=== PATIENT | female | born 1950 | race African-American/Black ===

== ENCOUNTER → 2016-11-25 | Outpatient (CLI) | payer MEDICARE ==
[2016-04-12 11:01] VITALS: BP 169/75
[~2016-11-25] MED LIST: ASPI81TA2 PO; BUPIVACAINE MPF 0.25% 10 ML VIAL. ONE; CARV12.5 PO; DOCU-27 PO; HYDR25SU18 RC; LEVO500T8 PO; LISI-334 PO; LORA1TAB PO; METR250T PO; OMEP40CA5 PO; PANT40TA5 PO; POLY17PO5 PO; PRAV20TA2 PO; SPIR50TA2 PO; SUCR1TAB PO; methylPREDNISolone ACETATE 40 MG/ML VIAL. ONE
--- NOTE | 2016-11-25 23:54 | PAIN ---
DATE OF SERVICE: 11/25/2016 INITIAL CONSULTATION FOR PAIN CLINIC CHIEF COMPLAINT: Mid upper back pain. HISTORY OF PRESENT ILLNESS: This is a 66-year-old female who presents with history of pain for about 1 year, not a result of any specific injury or action that she is aware of, but has pain in the mid and upper back since that time without any inciting injuries noted, but has had burning sensation more than painful sensation in the mid upper back. The patient reports it also causes some burning around into the abdomen bilaterally and mostly in the back; however, she reports she has to lean forward to some extent to try and stretch the muscles, which helps to feel little better. When she is sitting upright or standing upright the pain and burning is much more significant, the patient rates it anywhere from a 9 on a scale of 10 to a 3 on a scale of 10, 3 with leaning forward, 9 with standing upright, worse with standing, walking, changing positions. The patient reports it awakens her from sleep at night at least 2 or 3 times, affects her bowel and bladder control and states she has more urgency, but no loss of continence by her report. Also some abdominal burning similar to the intensity that is in the low back, but much less intense of a similar quality rather. The patient reports it is worse with changing positions, extension of her spine, but not as much with right and left lateral rotation which she can perform without significant difficulty. The patient reports she has had physical therapy without significant improvement in 12/2015. Also taken muscle relaxers in the past, which were not significantly helpful and tried gabapentin, but reports this did not help either and caused some peripheral swelling also. The patient had no radiation of pain to the upper extremities, lower extremities or elsewhere and again is bilateral and burning in sensation in the mid upper back. PAST MEDICAL HISTORY: Significant for hypertension, glaucoma, arthritis, gastroesophageal reflux, enlarged uterus. PREVIOUS SURGERY: Include colon resection, history of shingles many years ago, which was on the on the left side on the left breast and flank by her report. CURRENT MEDICATIONS: Include carvedilol, alprazolam, stool softeners, MiraLax, ____, sucralfate, pravastatin, omeprazole and lisinopril. ALLERGIES: THE PATIENT IS ALLERGIC TO SULFA, CODEINE, LEVAQUIN, MORPHINE, AND FENTANYL. FAMILY HISTORY: Significant for strokes in both her mother and her father. SOCIAL HISTORY: The patient does not smoke, does not drink alcohol. 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 The patient lives with her . REVIEW OF SYSTEMS: The patient's review of systems is positive for those items mentioned in history of present illness. All systems reviewed and otherwise negative. It is complete, full and well documented on the patient's chart. PHYSICAL EXAMINATION: VITAL SIGNS: The patient's blood pressure 164/93, pulse 63, respirations 18, temperature 97.7 degrees Fahrenheit, height is 5 feet 1 inch, weight is 158 pounds. GENERAL: The patient is awake, alert, oriented, appropriate, very pleasant demeanor. HEENT: Head shows normocephalic, atraumatic. Extraocular movements are intact and symmetrical. Oral cavity shows mucous membranes moist and pink. Dentition is intact. NECK: Shows anterior throat supple without palpable lymphadenopathy noted. Swallow reflex is symmetrical. CHEST: Shows normal on inspection. Breath sounds are clear to auscultation bilaterally. HEART: Shows S1 and S2 clear. No murmurs auscultated. ABDOMEN: Shows some mild tenderness with palpation in the middle and lower distribution bilaterally, mainly in the hypogastric region with palpation, but without specific masses palpated. No organomegaly. No rebound or guarding demonstrated. The patient shows positive bowel sounds in all 4 quadrants. BACK: The patient's back shows spine grossly in the midline. Normal appearing thoracic kyphosis and lumbar lordotic curvature is noted. No previous bruises, lesions, rashes or scars are noted throughout. The patient shows symmetrical paraspinous musculature throughout the thoracic as well as the lumbar distribution. With palpation of the thoracic paraspinous musculature shows very firm, very tender musculature, very rope-like tender areas of musculature bilaterally in the mid and upper thoracic distribution, the rhomboid distribution, and in the middle and lower thoracic distribution as well, somewhat worse on the right than the left in the middle and lower distribution, but tender bilaterally with multiple areas of trigger point rope-like musculature, very tender to palpation, but without specific radiation. No specific tenderness over the spinous processes in this region or in the lumbar distribution. Lumbar paraspinous musculature is nontender with palpation bilaterally. DIAGNOSTIC FINDINGS: The patient did have MRI scan of the thoracic spine showing no significant abnormalities and likely ____ masses. Ultrasound of the pelvis was performed and abdomen showing calcified heterogeneous structures identified, the uterus measuring 1.5 cm, likely calcified fibroids, and large appearing right ovary with calcifications. IMPRESSION: 1. This is a 66-year-old female with about one year history of increasing burning sensation, back pain, middle and upper back with some burning in the lower abdomen as well and pelvis. 2. Diagnostic studies as noted, MRI and ultrasound. 3. History of arthritis. 4. Hypertension. PLAN: Options were discussed with the patient including conservative medical management, continued physical therapy, water therapy, medication management and interventional techniques. She would like to pursue something other than physical therapy and medications as she reports she has had many of these without significant improvement. With the severity of her trigger point identified musculature we discussed trigger point injections of the bilateral rhomboid and thoracic paraspinous musculature. She would like to proceed with this. Risks were discussed including but not limited to bleeding, infection, possibility of intravascular injection sequelae, pneumothorax, side effects of steroid medication, spread of local anesthetic and numbness as well as poor results regarding pain control. The patient understands and wishes to proceed. The patient will return to the clinic in approximately 3 weeks for followup. She was counseled on return appointment, activity level and side effects to be aware of. DIAGNOSIS: Myofascial pain. PROCEDURE: Trigger point injections, bilateral rhomboid musculature and bilateral thoracic paraspinous musculature using sterile prep and drape, local anesthetic. MEDICATION INJECTED: A total of 40 mg Depo-Medrol plus total of 10 mL of 0.25% bupivacaine after negative aspiration at each level. CONDITION AT DISCHARGE: Stable. The patient tolerated procedure well, had no complications. DOV AUGUSTE MD DR: PALMIRA/gertrudis JOB#: [id number] / [id number]
== END | disposition home or self-care (01) ==
LOC: PNCL 13:03
PROVIDERS: ATTEND Anesthesiology
DX: M79.1 Myalgia (principal); I10 Essential (primary) hypertension; K21.9 Gastro-esophageal reflux disease without esophagitis; M19.90 Unspecified osteoarthritis, unspecified site; E78.00 Pure hypercholesterolemia, unspecified; F41.9 Anxiety disorder, unspecified; F32.9 Major depressive disorder, single episode, unspecified; D64.9 Anemia, unspecified
CPT/HCPCS: 20553; J1030; J3490

== ENCOUNTER → 2016-12-09 | Outpatient (CLI) | payer MEDICARE ==
[2016-04-12 11:01] VITALS: BP 169/75
[~2016-12-09] MED LIST changes: -BUPIVACAINE MPF 0.25% 10 ML VIAL. ONE; +POLY17PO29 PO; -POLY17PO5 PO; -methylPREDNISolone ACETATE 40 MG/ML VIAL. ONE
--- NOTE | 2016-12-09 13:34 | RAD ---
DATE: 12/09/2016 EXAM: DIGITAL DIAGNOSTIC RT HISTORY: Follow-up axillary lymph nodes COMPARISON: 06/18/2016, 05/31/2016 This study was interpreted with the benefit of Computerized Aided Detection (CAD). FINDINGS: There are scattered fibroglandular densities in the right breast. No new or enlarging breast densities are seen. There is an unchanged tiny cluster of microcalcifications in the anterolateral aspect of the right breast. No suspicious microcalcifications have developed. The anterior margins of 2 lymph nodes are partially visible on one of the oblique views. These nodes do not appear to be enlarged. Other nodes seen on the 05/31/2016 could not be visualized at this time despite several repeat oblique views. No new or enlarging lymph nodes are seen. IMPRESSION: Stable right mammograms as described above. Bilateral mammography in 6 months is suggested. BI-RADS CATEGORY: 3 PROBABLY BENIGN FINDING(S)-SHORT INTERVAL FOLLOW-UP SUGGESTED RECOMMENDED FOLLOW-UP: 6M 6 MONTH FOLLOW-UP PQRS compliance statement: Patient information was entered into a reminder system with a target due date for the next mammogram. Mammography is a sensitive method for finding small breast cancers, but it does not detect them all and is not a substitute for careful clinical examination. A negative mammogram does not negate a clinically suspicious finding and should not result in delay in biopsying a clinically suspicious abnormality. "Our facility is accredited by the [employer] Mammography Program."
== END | disposition home or self-care (01) ==
LOC: MAMMO 12:48
PROVIDERS: ATTEND Nurse Practitioner Family
DX: R92.8 Other abnormal and inconclusive findings on diagnostic imaging of breast (principal)
CPT/HCPCS: G0206; 77065

== ENCOUNTER → 2016-12-23 | Outpatient (CLI) | payer MEDICARE ==
[2016-04-12 11:01] VITALS: BP 169/75
[2016-12-23 14:19] LABS: BASO # 0.1 x10^3/uL (0.0-0.2); BASO % 1 % (0-3); EOS % 3 % (0-3); HEMOGLOBIN 13.2 g/dL (12.0-15.5); LYMPH % 27 % (24-48); MEAN CORPUSCULAR HEMOGLOBIN 30 pg (25-35); MEAN CORPUSCULAR HGB CONC 33 g/dL (31-37); MEAN CORPUSCULAR VOLUME 92 fL (79-100); MONO % 7 % (0-9); NEUT % 63 % (31-73); PLATELET COUNT 181 x10^3/uL (140-400); RED BLOOD COUNT 4.36 x10^6/uL (3.50-5.40); RED CELL DISTRIBUTION WIDTH 14.9 % (11.5-14.5); WHITE BLOOD COUNT 7.3 x10^3/uL (4.0-11.0)
[2016-12-23 14:23] LABS: BILIRUBIN,URINE NEGATIVE (NEG); GLUCOSE,URINE NEGATIVE (NEG); NITRITE,URINE NEGATIVE (NEG); PROTEIN,URINE NEGATIVE (NEG-TRACE); UROBILINOGEN,URINE 0.2 mg/dL (0.2 mg/dL)
--- NOTE | 2016-12-23 14:24 | EKG ---
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
[2016-12-23 14:37] LABS: ALBUMIN 3.7 g/dL (3.4-5.0); ALBUMIN/GLOBULIN RATIO 0.9 (1.0-1.7); CALCIUM 9.1 mg/dL (8.5-10.1); CREATININE 1.3 mg/dL (0.6-1.0); GFR 49.4; POTASSIUM 4.2 mmol/L (3.5-5.1); TOTAL BILIRUBIN 0.5 mg/dL (0.2-1.0); TOTAL PROTEIN 7.7 g/dL (6.4-8.2)
[2016-12-23 14:38] LABS: BACTERIA,URINE 0 /HPF (0-FEW); RBC,URINE 0 /HPF (0-2); SQUAMOUS EPITHELIAL CELL,UR FEW /LPF; WBC,URINE 0 /HPF (0-4)
--- NOTE | 2016-12-23 14:43 | RAD ---
Chest, 2 views, 12/23/2016: History: Preop evaluation for hysterectomy Comparison is made to a study from 08/26/2015. The heart is mildly enlarged. The pulmonary vascularity is normal. No pulmonary infiltrates are seen. There is no evidence of pleural fluid. IMPRESSION: 1. Mild cardiomegaly. 2. No acute abnormality is detected.
== END | disposition home or self-care (01) ==
LOC: SURGPAT 13:16
PROVIDERS: ATTEND Obstetrics & Gynecology
DX: Z01.818 Encounter for other preprocedural examination (principal); I51.7 Cardiomegaly
CPT/HCPCS: 36415; 71020; 80053; 81001; 85027; 87086; 93005

== ENCOUNTER → 2017-03-16 | Outpatient (CLI) | payer MEDICARE ==
[2016-04-12 11:01] VITALS: BP 169/75
[~2017-03-16] MED LIST changes: +ASPI-630 PO; -ASPI81TA2 PO; +DOCU-109 PO; -DOCU-27 PO
--- NOTE | 2017-03-16 13:24 | KCIC ---
EXAM: Right knee, 3 views. HISTORY: Pain. Inability to bear weight. COMPARISON: 05/02/2014 FINDINGS: Frontal, lateral and oblique views of the right knee are obtained. There is mild medial compartment joint space narrowing and moderate medial and patellofemoral compartment and mild to moderate lateral compartment spurring. There is degenerative subchondral sclerosis and subchondral cyst formation involving the patellofemoral compartment. There is a suspected small right knee effusion. IMPRESSION: 1. Moderate medial and patellofemoral compartment predominant tricompartmental osteoarthritis of the right knee. 2. Suspected small right knee effusion. Electronically signed by: Tanya Wilson MD (03/16/2017 1:21 PM) [id number]
== END | disposition home or self-care (01) ==
LOC: KCIC 12:34
PROVIDERS: ATTEND Nurse Practitioner Family
DX: M17.11 Unilateral primary osteoarthritis, right knee (principal)
CPT/HCPCS: 73562

== ENCOUNTER → 2017-06-12 | Day surgery (SDC) | payer MEDICARE ==
[~2017-06-12] MED LIST changes: +ERYT250T14 PO; +IV RINGERS,LACTATED 1000ML 1,000 ML IV SCH; +LOSA1TAB25 PO; +PROPOFOL 20 ML IV ONE
[2017-06-12 09:49] VITALS: BP 146/75
== END | disposition home or self-care (01) ==
LOC: ENDOS 08:23
PROVIDERS: ATTEND Internal Medicine Gastroenterology
DX: Z12.11 Encounter for screening for malignant neoplasm of colon (principal); D12.5 Benign neoplasm of sigmoid colon; K64.0 First degree hemorrhoids; E78.00 Pure hypercholesterolemia, unspecified; I10 Essential (primary) hypertension; K21.9 Gastro-esophageal reflux disease without esophagitis; F41.9 Anxiety disorder, unspecified; F32.9 Major depressive disorder, single episode, unspecified; D64.9 Anemia, unspecified; Z87.39 Personal history of other diseases of the musculoskeletal system and connective tissue; Z88.6 Allergy status to analgesic agent; Z88.2 Allergy status to sulfonamides; Z88.8 Allergy status to other drugs, medicaments and biological substances
CPT/HCPCS: 45385; J2704

== ENCOUNTER 2017-06-22 12:58 | Inpatient (IN) | payer MEDICARE ==
[~2017-06-22] VITALS: Ht 154.9 cm; Wt 70.8 kg
[~2017-06-22 12:58] MED LIST changes: -ERYT250T14 PO; -LOSA1TAB25 PO
[2017-06-22] MEDS ORDERED: IV NORMAL SALINE 1000ML BAG 1,000 ML IV ONE (13:15)
[2017-06-22] MEDS ORDERED: ONDANSETRON PF 4 MG/2 ML VIAL. IV ONE (13:15)
[2017-06-22] MEDS ORDERED: PANTOPRAZOLE IV PUSH 40 MG VIAL. IVP ONE ×2 (13:15→18:00)
--- NOTE | 2017-06-22 13:30 | EKG ---
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
[2017-06-22 13:34] LABS: BASO % 1 % (0-3); EOS % 1 % (0-3); HEMATOCRIT 40.4 % (36.0-47.0); HEMOGLOBIN 13.8 g/dL (12.0-15.5); LYMPH # 1.5 x10^3/uL (1.0-4.8); LYMPH % 17 % (24-48); MEAN CORPUSCULAR HEMOGLOBIN 31 pg (25-35); MEAN CORPUSCULAR HGB CONC 34 g/dL (31-37); MEAN CORPUSCULAR VOLUME 90 fL (79-100); MONO % 9 % (0-9); NEUT % 72 % (31-73); PLATELET COUNT 204 x10^3/uL (140-400); RED BLOOD COUNT 4.46 x10^6/uL (3.50-5.40); RED CELL DISTRIBUTION WIDTH 14.1 % (11.5-14.5); WHITE BLOOD COUNT 8.5 x10^3/uL (4.0-11.0)
[2017-06-22 13:42] LABS: CALCIUM 9.3 mg/dL (8.5-10.1); CREATININE 1.4 mg/dL (0.6-1.0); GFR 45.2; POTASSIUM 3.9 mmol/L (3.5-5.1)
[2017-06-22 13:48] LABS: ALBUMIN 3.8 g/dL (3.4-5.0); TOTAL BILIRUBIN 1.2 mg/dL (0.2-1.0); TOTAL PROTEIN 7.8 g/dL (6.4-8.2)
--- NOTE | 2017-06-22 13:55 | PHYS DOC ---
Past Medical History Past Medical History: Diverticulitis, GERD, GI Bleed, Hypertension, [place], Renal Disease Past Surgical History: Other Additional Past Surgical Histo: colectomy, cardiac stent Alcohol Use: None Drug Use: None Adult General Chief Complaint Chief Complaint: near syncope HPI HPI Patient is a 67 year old female who presents with here syncopal episode while getting a routine mammogram. Denies any chest pain or shortness of breath nausea vomiting or diarrhea. Does report fairly poor by mouth intake over the past week or so and recently had an EGD due to epigastric discomfort and apparently that did not demonstrate any significant pathology. Denies diabetes. Review of Systems Review of Systems Constitutional: Denies fever or chills [] Eyes: Denies change in visual acuity, redness, or eye pain [] HENT: Denies nasal congestion or sore throat [] Respiratory: Denies cough or shortness of breath [] Cardiovascular: No additional information not addressed in HPI [] GI: Denies abdominal pain, nausea, vomiting, bloody stools or diarrhea [] : Denies dysuria or hematuria [] Musculoskeletal: Denies back pain or joint pain [] Integument: Denies rash or skin lesions [] Neurologic: Denies headache, focal weakness or sensory changes [] Endocrine: Denies polyuria or polydipsia [] All other systems were reviewed and found to be within normal limits, except as documented in this note. Current Medications Current Medications Current Medications Medications (Trade) Dose Ordered Sig/Allan Start Time Stop Time Status Last Admin Dose Admin Ondansetron HCl (Zofran) 4 mg 1X ONCE 06/22/17 13:15 06/22/17 13:16 DC 06/22/17 13:51 4 MG Pantoprazole Sodium (Protonix Vial) 40 mg 1X ONCE 06/22/17 13:15 06/22/17 13:16 DC 06/22/17 13:51 40 MG Sodium Chloride 1,000 ml @ 1,000 mls/hr 1X ONCE 06/22/17 13:15 06/22/17 14:14 DC 06/22/17 13:51 1,000 MLS/HR Allergies Allergies Allergies Coded Allergies Type Severity Reaction Last Updated Verified fentanyl Allergy Intermediate PATIENT STATES THAT FENTANYL CAUSES HER TO BLEED 06/12/17 Yes levofloxacin Allergy Intermediate 06/12/17 Yes Sulfa (Sulfonamide Antibiotics) Adverse Reaction Intermediate SYNCOPE 06/12/17 Yes codeine Adverse Reaction Intermediate SYNCOPE 06/12/17 Yes metronidazole Adverse Reaction Intermediate Nausea 06/12/17 Yes morphine Adverse Reaction Intermediate nausea 06/12/17 Yes Physical Exam Physical Exam Constitutional: Well developed, well nourished, no acute distress, non-toxic appearance. [] HENT: Normocephalic, atraumatic, bilateral external ears normal, oropharynx moist, no oral exudates, nose normal. [] Eyes: PERRLA, EOMI, conjunctiva normal, no discharge. [] Neck: Normal range of motion, no tenderness, supple, no stridor. [] Cardiovascular:Heart rate regular rhythm, no murmur [] Lungs & Thorax: Bilateral breath sounds clear to auscultation [] Abdomen: Bowel sounds normal, soft, no tenderness, no masses, no pulsatile masses. [] Skin: Warm, dry, no erythema, no rash. [] Back: No tenderness, no CVA tenderness. [] Extremities: No tenderness, no cyanosis, no clubbing, ROM intact, no edema. [] Neurologic: Alert and oriented X 3, normal motor function, normal sensory function, no focal deficits noted. [] Psychologic: Affect normal, judgement normal, mood normal. [] Current Patient Data Vital Signs Vital Signs Date Time Temp Pulse Resp B/P (MAP) Pulse Ox O2 Delivery O2 Flow Rate FiO2 06/22/17 15:29 60 16 179/83 (115) 99 Room Air 06/22/17 13:03 98.7 98.7 Lab Values Laboratory Tests Test 06/22/17 13:01 06/22/17 13:25 06/22/17 14:50 Glucose (Fingerstick) 130 mg/dL (70-99) H White Blood Count 8.5 x10^3/uL (4.0-11.0) Red Blood Count 4.46 x10^6/uL (3.50-5.40) Hemoglobin 13.8 g/dL (12.0-15.5) Hematocrit 40.4 % (36.0-47.0) Mean Corpuscular Volume 90 fL (79-100) Mean Corpuscular Hemoglobin 31 pg (25-35) Mean Corpuscular Hemoglobin Concent 34 g/dL (31-37) Red Cell Distribution Width 14.1 % (11.5-14.5) Platelet Count 204 x10^3/uL (140-400) Neutrophils (%) (Auto) 72 % (31-73) Lymphocytes (%) (Auto) 17 % (24-48) L Monocytes (%) (Auto) 9 % (0-9) Eosinophils (%) (Auto) 1 % (0-3) Basophils (%) (Auto) 1 % (0-3) Neutrophils # (Auto) 6.1 x10^3uL (1.8-7.7) Lymphocytes # (Auto) 1.5 x10^3/uL (1.0-4.8) Monocytes # (Auto) 0.8 x10^3/uL (0.0-1.1) Eosinophils # (Auto) 0.1 x10^3/uL (0.0-0.7) Basophils # (Auto) 0.0 x10^3/uL (0.0-0.2) Sodium Level 125 mmol/L (136-145) L Potassium Level 3.9 mmol/L (3.5-5.1) Chloride Level 90 mmol/L (98-107) L Carbon Dioxide Level 26 mmol/L (21-32) Anion Gap 9 (6-14) Blood Urea Nitrogen 14 mg/dL (7-20) Creatinine 1.4 mg/dL (0.6-1.0) H Estimated GFR (Cockcroft-Gault) 45.2 BUN/Creatinine Ratio 10 (6-20) Glucose Level 124 mg/dL (70-99) H Calcium Level 9.3 mg/dL (8.5-10.1) Total Bilirubin 1.2 mg/dL (0.2-1.0) H Aspartate Amino Transferase (AST) 20 U/L (15-37) Alanine Aminotransferase (ALT) 22 U/L (14-59) Alkaline Phosphatase 96 U/L (46-116) Troponin I Quantitative < 0.017 ng/mL (0.000-0.055) Total Protein 7.8 g/dL (6.4-8.2) Albumin 3.8 g/dL (3.4-5.0) Albumin/Globulin Ratio 1.0 (1.0-1.7) Lipase 405 U/L (73-393) H Urine Collection Type Unknown Urine Color Colorless Urine Clarity Clear Urine pH 7.0 Urine Specific Mccaskill <=1.005 Urine Protein Negative mg/dL (NEG-TRACE) Urine Glucose (UA) Negative mg/dL (NEG) Urine Ketones (Stick) Negative mg/dL (NEG) Urine Blood Negative (NEG) Urine Nitrite Negative (NEG) Urine Bilirubin Negative (NEG) Urine Urobilinogen Dipstick 0.2 mg/dL (0.2 mg/dL) Urine Leukocyte Esterase Negative (NEG) Urine RBC Rare /HPF (0-2) Urine WBC Rare /HPF (0-4) Urine Squamous Epithelial Cells Few /LPF Urine Bacteria Few /HPF (0-FEW) Urine Osmolality 190 mOsmol/kg (.) Laboratory Tests 06/22/17 13:25 Laboratory Tests 06/22/17 13:25 EKG EKG EKG normal sinus rhythm rate of 61 no STEMI some T-wave inversion V3 through V6 my interpretation[] Radiology/Procedures Radiology/Procedures Chest x-ray borderline cardiomegaly no acute disease process.[] Course & Med Decision Making Course & Med Decision Making Pertinent Labs and Imaging studies reviewed. (See chart for details) Labs demonstrated hyponatremia borderline elevation of lipase. Patient was given IV fluids and symptomatic treatment with some improvement but she did not feel comfortable going home and is been unable to take by mouth. [] Dragon Disclaimer Dragon Disclaimer This electronic medical record was generated, in whole or in part, using a voice recognition dictation system. Departure Departure Impression: Primary Impression: Hyponatremia Additional Impressions: Syncope Acute abdominal pain Admitting Physician: Queta Bowling Condition: STABLE Referrals: SHRAVAN SANDOVAL APRN (PCP) Problem Qualifiers KARISHMA WOOD MD Jun 22, 2017 13:55
--- NOTE | 2017-06-22 13:58 | RAD ---
Indication: Syncope. Technique: Upright portable chest radiograph was obtained. Comparison is from June 14, 2017. Findings: The lungs are clear. The cardiopulmonary silhouette is within normal limits. The bony structures are intact. Leads overlie the patient. Impression: No active pulmonary disease.
[2017-06-22 14:57] LABS: BILIRUBIN,URINE NEGATIVE (NEG); GLUCOSE,URINE NEGATIVE (NEG); NITRITE,URINE NEGATIVE (NEG); PROTEIN,URINE NEGATIVE (NEG-TRACE); UROBILINOGEN,URINE 0.2 mg/dL (0.2 mg/dL)
[2017-06-22 15:11] LABS: BACTERIA,URINE FEW /HPF (0-FEW); RBC,URINE RARE /HPF (0-2); SQUAMOUS EPITHELIAL CELL,UR FEW /LPF; WBC,URINE RARE /HPF (0-4)
[2017-06-22] MEDS ORDERED: ONDANSETRON PF 4 MG/2 ML VIAL. IV PRN (16:00)
[2017-06-22] MEDS: IV NORMAL SALINE 1000ML BAG 1,000 ML IV SCH ×2 (16:00→18:01)
[2017-06-22] MEDS ORDERED: DOCUSATE SODIUM 100 MG CAPSULE. PO PRN (16:45)
[2017-06-22] MEDS ORDERED: LIDO:MAALOX:DONNATAL 1:1:1 15 ML SINGLE DOSE SWSW ONE (16:45)
[2017-06-22] MEDS ORDERED: METOCLOPRAMIDE HCL 10 MG/2 ML VIAL. IV PRN (16:45)
--- NOTE | 2017-06-22 16:46 | PDOC1 ---
History and Physical Date of Admission Date of Admission DATE: 06/22/17 TIME: 16:42 Identification/Chief Complaint Chief Complaint abd pain Problems: Source Source: Chart review, Patient History of Present Illness History of Present Illness Ms. aYnes, is a 67 year old female admit from ER, s/p syncopal episode today she has not been feeling well, reports hadn't eaten in days, poor PO intake, and abd pain, buring pain to abd toback. known Gastritis and esophagitis, recent EGD. + nausea and reports marked anxiety, no vomiting or diarrhea, but has worsening nausea. recently diagnosed with delayed gastric emptying Past Medical History Cardiovascular: CAD, HTN, Hyperlipidemia Pulmonary: No pertinent hx GI: Gastritis, Other Hepatobiliary: No pertinent hx Psych: Anxiety Rheumatologic: No pertinent hx Past Surgical History Past Surgical History: Colon Resection Family History Family History: No Significant Social History Smoke: No ALCOHOL: none Drugs: None Current Problem List Problem List Problems Medical Problems: (1) Acute abdominal pain Status: Acute (2) Hyponatremia Status: Acute (3) Near syncope Status: Acute (4) Syncope Status: Acute Problems: Current Medications Current Medications Current Medications Sodium Chloride 1,000 ml @ 1,000 mls/hr 1X ONCE IV Last administered on 06/22 13:51; Start 06/22/17 at 13:15; Stop 06/22/17 at 14:14; Status DC Ondansetron HCl (Zofran) 4 mg 1X ONCE IV Last administered on 06/22/17 13:51 ; Start 06/22/17 at 13:15; Stop 06/22/17 at 13:16; Status DC Pantoprazole Sodium (Protonix Vial) 40 mg 1X ONCE IVP Last administered on 13:51; Start 06/22/17 at 13:15; Stop 06/22/17 at 13:16; Status DC Ondansetron HCl (Zofran) 4 mg PRN Q8HRS PRN IV NAUSEA/VOMITING; Start at 16:00; Stop 06/23/17 at 15:59 Sodium Chloride 1,000 ml @ 125 mls/hr Q8H IV ; Start 06/22/17 at 16:00; Stop 06/23/17 at 15:59 Carvedilol (Coreg) 12.5 mg BIDWMEALS PO ; Start 06/22/17 at 17:00 Docusate Sodium (Colace) 100 mg PRN BID PRN PO CONSTIPATION; Start 06/22/17 at 16:45 Lisinopril (Prinivil) 20 mg DAILY PO ; Start 06/23/17 at 09:00 Lorazepam (Ativan) 2 mg Q8HRS PRN PO anxiety; Start 06/22/17 at 16:45 Polyethylene Glycol (miraLAX PACKET) 17 gm DAILY PO ; Start 06/23/17 at 09:00 Sucralfate (Carafate) 1 gm BID PO ; Start 06/22/17 at 21:00 Pantoprazole Sodium (Protonix) 40 mg DAILYAC PO ; Start 06/23/17 at 07:30 Atorvastatin Calcium (Lipitor) 5 mg QHS PO ; Start 06/22/17 at 21:00 Active Scripts Active Colace (Docusate Sodium) 100 Mg Capsule 1 Cap PO PRN BID PRN Reported Miralax (Polyethylene Glycol 3350) 17 Gm Powd.pack 1 Packet PO DAILY Omeprazole 40 Mg Capsule.dr 40 Mg PO DAILY Sucralfate 1 Gm Tablet 1 Tab PO BID Pravastatin Sodium 20 Mg Tablet 20 Mg PO DAILY Lorazepam 1 Mg Tablet 2 Mg PO DAILY Coreg (Carvedilol) 12.5 Mg Tablet 12.5 Mg PO BID Lisinopril 20 Mg Tablet 20 Mg PO DAILY Allergies Allergies: Coded Allergies: fentanyl (Verified Allergy, Intermediate, PATIENT STATES THAT FENTANYL CAUSES HER TO BLEED, 06/12/17) levofloxacin (Verified Allergy, Intermediate, 06/12/17) Sulfa (Sulfonamide Antibiotics) (Verified Adverse Reaction, Intermediate, SYNCOPE, 06/12/17) codeine (Verified Adverse Reaction, Intermediate, SYNCOPE, 06/12/17) metronidazole (Verified Adverse Reaction, Intermediate, Nausea, 06/12/17) morphine (Verified Adverse Reaction, Intermediate, nausea, 06/12/17) ROS General: YES: Fatigue, Malaise, Appetite, No: Chills, Night Sweats, Other PSYCHOLOGICAL ROS: YES: Anxiety, Sleep disturbances, No: Behavioral Disorder, Concentration difficultie, Decreased libido, Depression, Disorientation, Hallucinations, Hostility, Irritablity, Memory difficulties, Mood Swings, Obsessive thoughts Eyes: No Blurry vision, No Decreased vision, No Double vision, No Dry eyes, No Excessive tearing, No Eye Pain, No Itchy Eyes, No Loss of vision, No Photophobia , No Scotomata, No Uses contacts, No Uses glasses, No Other HEENT: YES: Heacaches, No: Visual Changes, Hearing change, Nasal congestion, Nasal discharge, Oral lesions, Sinus pain, Sore Throat, Epistaxis, Sneezing, Snoring, Tinnitus, Vertigo, Vocal changes, Other Hematological and Lymphatic: No: Bleeding Problems, Blood Clots, Blood Transfusions, Brusing, Night Sweats, Pallor, Swollen Lymph Nodes, Other Respiratory: No: Cough, Hemoptysis, Orthopnea, Pleuritic Pain, Shortness of breath, SOB with excertion, Sputum Changes, Stridor, Tachypnea, Wheezing, Other Cardiovascular: No Chest Pain, No Palpitations, No Orthopnea, No Paroxysmal Noc. Dyspnea, No Edema, No Lt Headedness, No Other Gastrointestinal: Yes Nausea, Yes Abdominal Pain, No Vomiting, No Diarrhea, No Constipation, No Melena, No Hematochezia, No Other Genitourinary: No Dysuria, No Frequency, No Incontinence, No Hematuria, No Retention, No Discharge, No Urgency, No Pain, No Flank Pain, No Other, No , No , No , No , No , No , No Musculoskeletal: Yes Joint Stiffness, No Gait Disturbance, No Joint Pain, No Joint Swelling, No Muscle Pain, No Muscular Weakness, No Pain In:, No Swelling In:, No Other Neurological: No Behavorial Changes, No Bowel/Bladder ControlChng, No Confusion , No Dizziness, No Gait Disturbance, No Headaches, No Impaired Coord/balance, No Memory Loss, No Numbness/Tingling, No Seizures, No Speech Problems, No Tremors, No Visual Changes, No Weakness, No Other Skin: Yes Dry Skin, No Eczema, No Hair Changes, No Lumps, No Mole Changes, No Mottling, No Nail Changes, No Pruritus, No Rash, No Skin Lesion Changes, No Other, No Acne Physical Exam General: Alert, Oriented X3, Cooperative, mild distress HEENT: Atraumatic, PERRLA, EOMI Lungs: Clear to auscultation Heart: S1S2, no gallops, no murmurs Abdomen: Normal bowel sounds, Soft, Other (diffusely tender, with guarding, no rebound, soft, ) Extremities: No clubbing, No edema, Normal pulses Skin: No rashes, No breakdown, No significant lesion Neuro: Normal speech, Sensation intact, Cranial nerves 3-12 NL Psych/Mental Status: Mental status NL, Mood NL Vitals Vitals Vital Signs Date Time Temp Pulse Resp B/P (MAP) Pulse Ox O2 Delivery O2 Flow Rate FiO2 06/22/17 16:29 60 17 177/76 (109) 98 Room Air 06/22/17 13:03 98.7 98.7 Labs Labs Laboratory Tests Test 06/22/17 13:01 06/22/17 13:25 06/22/17 14:50 Glucose (Fingerstick) 130 mg/dL (70-99) White Blood Count 8.5 x10^3/uL (4.0-11.0) Red Blood Count 4.46 x10^6/uL (3.50-5.40) Hemoglobin 13.8 g/dL (12.0-15.5) Hematocrit 40.4 % (36.0-47.0) Mean Corpuscular Volume 90 fL (79-100) Mean Corpuscular Hemoglobin 31 pg (25-35) Mean Corpuscular Hemoglobin Concent 34 g/dL (31-37) Red Cell Distribution Width 14.1 % (11.5-14.5) Platelet Count 204 x10^3/uL (140-400) Neutrophils (%) (Auto) 72 % (31-73) Lymphocytes (%) (Auto) 17 % (24-48) Monocytes (%) (Auto) 9 % (0-9) Eosinophils (%) (Auto) 1 % (0-3) Basophils (%) (Auto) 1 % (0-3) Neutrophils # (Auto) 6.1 x10^3uL (1.8-7.7) Lymphocytes # (Auto) 1.5 x10^3/uL (1.0-4.8) Monocytes # (Auto) 0.8 x10^3/uL (0.0-1.1) Eosinophils # (Auto) 0.1 x10^3/uL (0.0-0.7) Basophils # (Auto) 0.0 x10^3/uL (0.0-0.2) Sodium Level 125 mmol/L (136-145) Potassium Level 3.9 mmol/L (3.5-5.1) Chloride Level 90 mmol/L (98-107) Carbon Dioxide Level 26 mmol/L (21-32) Anion Gap 9 (6-14) Blood Urea Nitrogen 14 mg/dL (7-20) Creatinine 1.4 mg/dL (0.6-1.0) Estimated GFR (Cockcroft-Gault) 45.2 BUN/Creatinine Ratio 10 (6-20) Glucose Level 124 mg/dL (70-99) Calcium Level 9.3 mg/dL (8.5-10.1) Total Bilirubin 1.2 mg/dL (0.2-1.0) Aspartate Amino Transf (AST/SGOT) 20 U/L (15-37) Alanine Aminotransferase (ALT/SGPT) 22 U/L (14-59) Alkaline Phosphatase 96 U/L (46-116) Troponin I Quantitative < 0.017 ng/mL (0.000-0.055) Total Protein 7.8 g/dL (6.4-8.2) Albumin 3.8 g/dL (3.4-5.0) Albumin/Globulin Ratio 1.0 (1.0-1.7) Lipase 405 U/L (73-393) Urine Collection Type Unknown Urine Color Colorless Urine Clarity Clear Urine pH 7.0 Urine Specific [place] <=1.005 Urine Protein Negative mg/dL (NEG-TRACE) Urine Glucose (UA) Negative mg/dL (NEG) Urine Ketones (Stick) Negative mg/dL (NEG) Urine Blood Negative (NEG) Urine Nitrite Negative (NEG) Urine Bilirubin Negative (NEG) Urine Urobilinogen Dipstick 0.2 mg/dL (0.2 mg/dL) Urine Leukocyte Esterase Negative (NEG) Urine RBC Rare /HPF (0-2) Urine WBC Rare /HPF (0-4) Urine Squamous Epithelial Cells Few /LPF Urine Bacteria Few /HPF (0-FEW) Laboratory Tests Test 06/22/17 13:01 06/22/17 13:25 06/22/17 14:50 Glucose (Fingerstick) 130 mg/dL (70-99) White Blood Count 8.5 x10^3/uL (4.0-11.0) Red Blood Count 4.46 x10^6/uL (3.50-5.40) Hemoglobin 13.8 g/dL (12.0-15.5) Hematocrit 40.4 % (36.0-47.0) Mean Corpuscular Volume 90 fL (79-100) Mean Corpuscular Hemoglobin 31 pg (25-35) Mean Corpuscular Hemoglobin Concent 34 g/dL (31-37) Red Cell Distribution Width 14.1 % (11.5-14.5) Platelet Count 204 x10^3/uL (140-400) Neutrophils (%) (Auto) 72 % (31-73) Lymphocytes (%) (Auto) 17 % (24-48) Monocytes (%) (Auto) 9 % (0-9) Eosinophils (%) (Auto) 1 % (0-3) Basophils (%) (Auto) 1 % (0-3) Neutrophils # (Auto) 6.1 x10^3uL (1.8-7.7) Lymphocytes # (Auto) 1.5 x10^3/uL (1.0-4.8) Monocytes # (Auto) 0.8 x10^3/uL (0.0-1.1) Eosinophils # (Auto) 0.1 x10^3/uL (0.0-0.7) Basophils # (Auto) 0.0 x10^3/uL (0.0-0.2) Sodium Level 125 mmol/L (136-145) Potassium Level 3.9 mmol/L (3.5-5.1) Chloride Level 90 mmol/L (98-107) Carbon Dioxide Level 26 mmol/L (21-32) Anion Gap 9 (6-14) Blood Urea Nitrogen 14 mg/dL (7-20) Creatinine 1.4 mg/dL (0.6-1.0) Estimated GFR (Cockcroft-Gault) 45.2 BUN/Creatinine Ratio 10 (6-20) Glucose Level 124 mg/dL (70-99) Calcium Level 9.3 mg/dL (8.5-10.1) Total Bilirubin 1.2 mg/dL (0.2-1.0) Aspartate Amino Transf (AST/SGOT) 20 U/L (15-37) Alanine Aminotransferase (ALT/SGPT) 22 U/L (14-59) Alkaline Phosphatase 96 U/L (46-116) Troponin I Quantitative < 0.017 ng/mL (0.000-0.055) Total Protein 7.8 g/dL (6.4-8.2) Albumin 3.8 g/dL (3.4-5.0) Albumin/Globulin Ratio 1.0 (1.0-1.7) Lipase 405 U/L (73-393) Urine Collection Type Unknown Urine Color Colorless Urine Clarity Clear Urine pH 7.0 Urine Specific [place] <=1.005 Urine Protein Negative mg/dL (NEG-TRACE) Urine Glucose (UA) Negative mg/dL (NEG) Urine Ketones (Stick) Negative mg/dL (NEG) Urine Blood Negative (NEG) Urine Nitrite Negative (NEG) Urine Bilirubin Negative (NEG) Urine Urobilinogen Dipstick 0.2 mg/dL (0.2 mg/dL) Urine Leukocyte Esterase Negative (NEG) Urine RBC Rare /HPF (0-2) Urine WBC Rare /HPF (0-4) Urine Squamous Epithelial Cells Few /LPF Urine Bacteria Few /HPF (0-FEW) VTE Prophylaxis Ordered VTE Prophylaxis Devices: Yes VTE Pharmacological Prophylaxi: Yes Assessment/Plan Assessment/Plan acute abdominal pain, gastritis and esophagitis, IV PPI, then PO BID GI consult nausea, and bloating, new recent diagnosis of gastroparesis, PRN reglan htn, home meds hyponatremia, likely dry, check urine osm, recheck chem soon acute vasomotor nephropathy likely anxiety d/o NOS, home meds, PRN LUC DOLAN MD Jun 22, 2017 16:46
[2017-06-22 17:00] VITALS: BP 185/84
[2017-06-22] MEDS ORDERED: LOSA1TAB25 PO (17:45)
[2017-06-22] MEDS: CARVEDILOL 12.5 MG TABLET. PO SCH (18:02)
[2017-06-22] MEDS: ENOXAPARIN 40 MG/0.4 ML SYRINGE. SQ SCH (18:07)
--- NOTE | 2017-06-22 18:22 | PDOC ---
G I PROGRESS NOTE Reason for Follow-up Gastroparesis Subjective Unable to tolerate po Physical Exam Lungs clear CV S1 S2 ABD +BS, soft, Review of Relevant I have reviewed the following items paul (where applicable) has been applied. Labs Laboratory Tests Test 06/22/17 13:01 06/22/17 13:25 06/22/17 14:50 Glucose (Fingerstick) 130 mg/dL (70-99) White Blood Count 8.5 x10^3/uL (4.0-11.0) Red Blood Count 4.46 x10^6/uL (3.50-5.40) Hemoglobin 13.8 g/dL (12.0-15.5) Hematocrit 40.4 % (36.0-47.0) Mean Corpuscular Volume 90 fL (79-100) Mean Corpuscular Hemoglobin 31 pg (25-35) Mean Corpuscular Hemoglobin Concent 34 g/dL (31-37) Red Cell Distribution Width 14.1 % (11.5-14.5) Platelet Count 204 x10^3/uL (140-400) Neutrophils (%) (Auto) 72 % (31-73) Lymphocytes (%) (Auto) 17 % (24-48) Monocytes (%) (Auto) 9 % (0-9) Eosinophils (%) (Auto) 1 % (0-3) Basophils (%) (Auto) 1 % (0-3) Neutrophils # (Auto) 6.1 x10^3uL (1.8-7.7) Lymphocytes # (Auto) 1.5 x10^3/uL (1.0-4.8) Monocytes # (Auto) 0.8 x10^3/uL (0.0-1.1) Eosinophils # (Auto) 0.1 x10^3/uL (0.0-0.7) Basophils # (Auto) 0.0 x10^3/uL (0.0-0.2) Sodium Level 125 mmol/L (136-145) Potassium Level 3.9 mmol/L (3.5-5.1) Chloride Level 90 mmol/L (98-107) Carbon Dioxide Level 26 mmol/L (21-32) Anion Gap 9 (6-14) Blood Urea Nitrogen 14 mg/dL (7-20) Creatinine 1.4 mg/dL (0.6-1.0) Estimated GFR (Cockcroft-Gault) 45.2 BUN/Creatinine Ratio 10 (6-20) Glucose Level 124 mg/dL (70-99) Calcium Level 9.3 mg/dL (8.5-10.1) Total Bilirubin 1.2 mg/dL (0.2-1.0) Aspartate Amino Transf (AST/SGOT) 20 U/L (15-37) Alanine Aminotransferase (ALT/SGPT) 22 U/L (14-59) Alkaline Phosphatase 96 U/L (46-116) Troponin I Quantitative < 0.017 ng/mL (0.000-0.055) Total Protein 7.8 g/dL (6.4-8.2) Albumin 3.8 g/dL (3.4-5.0) Albumin/Globulin Ratio 1.0 (1.0-1.7) Lipase 405 U/L (73-393) Urine Collection Type Unknown Urine Color Colorless Urine Clarity Clear Urine pH 7.0 Urine Specific [place] <=1.005 Urine Protein Negative mg/dL (NEG-TRACE) Urine Glucose (UA) Negative mg/dL (NEG) Urine Ketones (Stick) Negative mg/dL (NEG) Urine Blood Negative (NEG) Urine Nitrite Negative (NEG) Urine Bilirubin Negative (NEG) Urine Urobilinogen Dipstick 0.2 mg/dL (0.2 mg/dL) Urine Leukocyte Esterase Negative (NEG) Urine RBC Rare /HPF (0-2) Urine WBC Rare /HPF (0-4) Urine Squamous Epithelial Cells Few /LPF Urine Bacteria Few /HPF (0-FEW) Laboratory Tests Test 06/22/17 13:01 06/22/17 13:25 06/22/17 14:50 Glucose (Fingerstick) 130 mg/dL (70-99) White Blood Count 8.5 x10^3/uL (4.0-11.0) Red Blood Count 4.46 x10^6/uL (3.50-5.40) Hemoglobin 13.8 g/dL (12.0-15.5) Hematocrit 40.4 % (36.0-47.0) Mean Corpuscular Volume 90 fL (79-100) Mean Corpuscular Hemoglobin 31 pg (25-35) Mean Corpuscular Hemoglobin Concent 34 g/dL (31-37) Red Cell Distribution Width 14.1 % (11.5-14.5) Platelet Count 204 x10^3/uL (140-400) Neutrophils (%) (Auto) 72 % (31-73) Lymphocytes (%) (Auto) 17 % (24-48) Monocytes (%) (Auto) 9 % (0-9) Eosinophils (%) (Auto) 1 % (0-3) Basophils (%) (Auto) 1 % (0-3) Neutrophils # (Auto) 6.1 x10^3uL (1.8-7.7) Lymphocytes # (Auto) 1.5 x10^3/uL (1.0-4.8) Monocytes # (Auto) 0.8 x10^3/uL (0.0-1.1) Eosinophils # (Auto) 0.1 x10^3/uL (0.0-0.7) Basophils # (Auto) 0.0 x10^3/uL (0.0-0.2) Sodium Level 125 mmol/L (136-145) Potassium Level 3.9 mmol/L (3.5-5.1) Chloride Level 90 mmol/L (98-107) Carbon Dioxide Level 26 mmol/L (21-32) Anion Gap 9 (6-14) Blood Urea Nitrogen 14 mg/dL (7-20) Creatinine 1.4 mg/dL (0.6-1.0) Estimated GFR (Cockcroft-Gault) 45.2 BUN/Creatinine Ratio 10 (6-20) Glucose Level 124 mg/dL (70-99) Calcium Level 9.3 mg/dL (8.5-10.1) Total Bilirubin 1.2 mg/dL (0.2-1.0) Aspartate Amino Transf (AST/SGOT) 20 U/L (15-37) Alanine Aminotransferase (ALT/SGPT) 22 U/L (14-59) Alkaline Phosphatase 96 U/L (46-116) Troponin I Quantitative < 0.017 ng/mL (0.000-0.055) Total Protein 7.8 g/dL (6.4-8.2) Albumin 3.8 g/dL (3.4-5.0) Albumin/Globulin Ratio 1.0 (1.0-1.7) Lipase 405 U/L (73-393) Urine Collection Type Unknown Urine Color Colorless Urine Clarity Clear Urine pH 7.0 Urine Specific [place] <=1.005 Urine Protein Negative mg/dL (NEG-TRACE) Urine Glucose (UA) Negative mg/dL (NEG) Urine Ketones (Stick) Negative mg/dL (NEG) Urine Blood Negative (NEG) Urine Nitrite Negative (NEG) Urine Bilirubin Negative (NEG) Urine Urobilinogen Dipstick 0.2 mg/dL (0.2 mg/dL) Urine Leukocyte Esterase Negative (NEG) Urine RBC Rare /HPF (0-2) Urine WBC Rare /HPF (0-4) Urine Squamous Epithelial Cells Few /LPF Urine Bacteria Few /HPF (0-FEW) Medications Current Medications Sodium Chloride 1,000 ml @ 1,000 mls/hr 1X ONCE IV Last administered on 06/22 13:51; Start 06/22/17 at 13:15; Stop 06/22/17 at 14:14; Status DC Ondansetron HCl (Zofran) 4 mg 1X ONCE IV Last administered on 06/22/17 13:51 ; Start 06/22/17 at 13:15; Stop 06/22/17 at 13:16; Status DC Pantoprazole Sodium (Protonix Vial) 40 mg 1X ONCE IVP Last administered on 13:51; Start 06/22/17 at 13:15; Stop 06/22/17 at 13:16; Status DC Ondansetron HCl (Zofran) 4 mg PRN Q8HRS PRN IV NAUSEA/VOMITING; Start at 16:00; Stop 06/23/17 at 15:59 Sodium Chloride 1,000 ml @ 125 mls/hr Q8H IV ; Start 06/22/17 at 16:00; Stop 06/23/17 at 15:59 Carvedilol (Coreg) 12.5 mg BIDWMEALS PO Last administered on 06/22/17 18:02; Start 06/22/17 at 17:00 Docusate Sodium (Colace) 100 mg PRN BID PRN PO CONSTIPATION; Start 06/22/17 at 16:45 Lisinopril (Prinivil) 20 mg DAILY PO ; Start 06/23/17 at 09:00; Stop 06/23/17 at 09:00; Status DC Lorazepam (Ativan) 2 mg Q8HRS PRN PO anxiety; Start 06/22/17 at 16:45 Polyethylene Glycol (miraLAX PACKET) 17 gm DAILY PO ; Start 06/23/17 at 09:00 Sucralfate (Carafate) 1 gm BID PO ; Start 06/22/17 at 21:00 Pantoprazole Sodium (Protonix) 40 mg DAILYAC PO ; Start 06/23/17 at 07:30 Atorvastatin Calcium (Lipitor) 5 mg QHS PO ; Start 06/22/17 at 21:00 Metoclopramide HCl (Reglan Vial) 10 mg PRN Q6HRS PRN IV NAUSEA/VOMITING; Start 06/22/17 at 16:45 Sodium Chloride 1,000 ml @ 100 mls/hr Q10H IV Last administered on 06/22/17 18:01; Start 06/22/17 at 16:45 Multi-Ingredient Mouthwash/Gargle (Gi Cocktail Single Dose) 15 ml 1X ONCE SWSW Last administered on 06/22/17 18:01; Start 06/22/17 at 16:45; Stop at 16:50; Status DC Enoxaparin Sodium (Lovenox Per Pharmacy Prophylaxis Dosing) 1 each PRN DAILY PRN MC SEE COMMENTS; Start 06/22/17 at 17:15 Enoxaparin Sodium (Lovenox 40mg Syringe) 40 mg Q24H SQ Last administered on 18:07; Start 06/22/17 at 18:00 Pantoprazole Sodium (Protonix Vial) 40 mg 1X ONCE IVP Last administered on 18:07; Start 06/22/17 at 18:00; Stop 06/22/17 at 18:01; Status DC Non-Formulary Medication 1 tab DAILY PO ; Start 06/23/17 at 09:00; Status UNV Losartan Potassium (Cozaar) 100 mg DAILY PO ; Start 06/23/17 at 09:00 Hydrochlorothiazide (Microzide) 12.5 mg DAILY PO ; Start 06/23/17 at 09:00 Active Scripts Active Colace (Docusate Sodium) 100 Mg Capsule 1 Cap PO PRN BID PRN Reported Losartan-Hctz 100-12.5 Mg Tab (Losartan/Hydrochlorothiazide) 1 Each Tablet 1 Tab PO DAILY Miralax (Polyethylene Glycol 3350) 17 Gm Powd.pack 1 Packet PO DAILY Omeprazole 40 Mg Capsule.dr 40 Mg PO DAILY Sucralfate 1 Gm Tablet 1 Tab PO BID Pravastatin Sodium 20 Mg Tablet 20 Mg PO DAILY Lorazepam 1 Mg Tablet 2 Mg PO DAILY Coreg (Carvedilol) 12.5 Mg Tablet 12.5 Mg PO BID Vitals/I & O Vital Sign - Last 24 Hours 06/22/17 06/22/17 06/22/17 06/22/17 13:03 13:26 13:59 14:29 Temp 98.7 98.7 Pulse 62 52 54 60 Resp 16 17 20 18 B/P (MAP) 181/88 (119) 127/54 (78) 180/85 (116) 180/86 (117) Pulse Ox 100 100 99 99 O2 Delivery Room Air Room Air Room Air Room Air 06/22/17 06/22/17 06/22/17 06/22/17 15:29 16:29 17:00 18:02 Temp 97.8 97.8 Pulse 60 60 65 185 Resp 16 18 B/P (MAP) 179/83 (115) 177/76 (109) 185/84 (117) 84/65 Pulse Ox 99 98 100 O2 Delivery Room Air Room Air Room Air Problem List Problems Medical Problems: (1) Acute abdominal pain Status: Acute (2) Hyponatremia Status: Acute (3) Near syncope Status: Acute (4) Syncope Status: Acute Assessment n/V- with gastroparesis. medical therapy not working, patient to consider J tube , cortisol to assess for component of adrenal insufficiency as well. BILL MAX MD Jun 22, 2017 18:22
[2017-06-22 19:00] VITALS: BP 163/83
[2017-06-22 19:48] LABS: CALCIUM 8.8 mg/dL (8.5-10.1); CREATININE 1.2 mg/dL (0.6-1.0); GFR 54.1; POTASSIUM 3.3 mmol/L (3.5-5.1)
[2017-06-22] MEDS: LORazepam 1 MG TABLET PO PRN (20:06)
[2017-06-22] MEDS: ATORVASTATIN CALCIUM 10 MG TABLET. PO SCH (20:06)
[2017-06-22] MEDS: SUCRALFATE 1 GM TABLET. PO SCH (20:07)
[2017-06-22 23:00] VITALS: BP 123/64
[2017-06-23] MEDS: IV NORMAL SALINE 1000ML BAG 1,000 ML IV SCH ×5 (02:02→22:00)
[2017-06-23 03:30] VITALS: BP 141/63
[2017-06-23 06:26] LABS: BASO % 1 % (0-3); EOS % 2 % (0-3); HEMATOCRIT 34.9 % (36.0-47.0); HEMOGLOBIN 11.9 g/dL (12.0-15.5); LYMPH # 1.8 x10^3/uL (1.0-4.8); LYMPH % 26 % (24-48); MEAN CORPUSCULAR HEMOGLOBIN 31 pg (25-35); MEAN CORPUSCULAR HGB CONC 34 g/dL (31-37); MEAN CORPUSCULAR VOLUME 91 fL (79-100); MONO % 11 % (0-9); NEUT % 61 % (31-73); PLATELET COUNT 167 x10^3/uL (140-400); RED BLOOD COUNT 3.84 x10^6/uL (3.50-5.40); RED CELL DISTRIBUTION WIDTH 14.3 % (11.5-14.5); WHITE BLOOD COUNT 6.9 x10^3/uL (4.0-11.0)
[2017-06-23 06:50] LABS: ALBUMIN 2.9 g/dL (3.4-5.0); ALBUMIN/GLOBULIN RATIO 0.9 (1.0-1.7); CALCIUM 7.9 mg/dL (8.5-10.1); CREATININE 1.1 mg/dL (0.6-1.0); GFR 59.8; POTASSIUM 3.9 mmol/L (3.5-5.1); TOTAL BILIRUBIN 0.8 mg/dL (0.2-1.0); TOTAL PROTEIN 6.1 g/dL (6.4-8.2)
[2017-06-23 07:00] VITALS: BP 126/62
[2017-06-23] MEDS: CARVEDILOL 12.5 MG TABLET. PO SCH ×2 (08:13→17:16)
[2017-06-23] MEDS: PANTOPRAZOLE 40 MG TABLET.DR. PO SCH (08:13)
[2017-06-23] MEDS: SUCRALFATE 1 GM TABLET. PO SCH ×2 (08:14→21:05)
[2017-06-23] MEDS: POLYETHYLENE GLYCOL 3350 17 GM PACKET. PO SCH (08:14)
[2017-06-23] MEDS: hydroCHLOROthiazide 12.5 MG CAPSULE PO SCH (08:14)
[2017-06-23] MEDS: LOSARTAN POTASSIUM 50 MG TABLET. PO SCH (08:15)
[2017-06-23] MEDS ORDERED: LISINOPRIL 20 MG TABLET PO SCH (09:00)
[2017-06-23] MEDS ORDERED: NON FORMULARY ITEM (Losartan/Hydrochlorothiazide (Losartan-Hctz 100-12.5 Mg Tab) 1 TAB) PO SCH (09:00)
--- NOTE | 2017-06-23 09:34 | PDOC ---
PROGRESS NOTES Chief Complaint Chief Complaint Acute abdominal pain ASSESSMENT AND PLAN: 1. Gastritis/ esophagitis: IV PPI, then PO BID. GI consult appreciated 2. Gastroparesis: recent dx. PRN reglan - pt declines, however...advance diet as mendy. 3. Hyponatremia: resolved 4. MIGUEL: vasomotor nephropathy. much improved 5. HTN: well controlled on home regimen 6. Hyperglycemia: no previous dx. check ISS, HgbA1c 7. Anxiety: cont home regimen History of Present Illness History of Present Illness feels better, no nausea. wants 2nd opinion about potential of needing PEG; Vitals Vitals Vital Signs Date Time Temp Pulse Resp B/P (MAP) Pulse Ox O2 Delivery O2 Flow Rate FiO2 06/23/17 08:15 65 129/65 06/23/17 03:30 97.9 19 97 Room Air 97.9 Physical Exam General: Alert, Oriented X3, Cooperative Heart: Regular rate Lungs: Clear Abdomen: Normal bowel sounds, Soft, Other (diffusely tender, with guarding, no rebound, soft, ) Extremities: No edema Skin: No rashes Labs LABS Laboratory Tests Test 06/22/17 13:01 06/22/17 13:25 06/22/17 14:50 06/22/17 19:25 Glucose (Fingerstick) 130 mg/dL (70-99) White Blood Count 8.5 x10^3/uL (4.0-11.0) Red Blood Count 4.46 x10^6/uL (3.50-5.40) Hemoglobin 13.8 g/dL (12.0-15.5) Hematocrit 40.4 % (36.0-47.0) Mean Corpuscular Volume 90 fL (79-100) Mean Corpuscular Hemoglobin 31 pg (25-35) Mean Corpuscular Hemoglobin Concent 34 g/dL (31-37) Red Cell Distribution Width 14.1 % (11.5-14.5) Platelet Count 204 x10^3/uL (140-400) Neutrophils (%) (Auto) 72 % (31-73) Lymphocytes (%) (Auto) 17 % (24-48) Monocytes (%) (Auto) 9 % (0-9) Eosinophils (%) (Auto) 1 % (0-3) Basophils (%) (Auto) 1 % (0-3) Neutrophils # (Auto) 6.1 x10^3uL (1.8-7.7) Lymphocytes # (Auto) 1.5 x10^3/uL (1.0-4.8) Monocytes # (Auto) 0.8 x10^3/uL (0.0-1.1) Eosinophils # (Auto) 0.1 x10^3/uL (0.0-0.7) Basophils # (Auto) 0.0 x10^3/uL (0.0-0.2) Sodium Level 125 mmol/L (136-145) 130 mmol/L (136-145) Potassium Level 3.9 mmol/L (3.5-5.1) 3.3 mmol/L (3.5-5.1) Chloride Level 90 mmol/L (98-107) 96 mmol/L (98-107) Carbon Dioxide Level 26 mmol/L (21-32) 30 mmol/L (21-32) Anion Gap 9 (6-14) 4 (6-14) Blood Urea Nitrogen 14 mg/dL (7-20) 12 mg/dL (7-20) Creatinine 1.4 mg/dL (0.6-1.0) 1.2 mg/dL (0.6-1.0) Estimated GFR (Cockcroft-Gault) 45.2 54.1 BUN/Creatinine Ratio 10 (6-20) Glucose Level 124 mg/dL (70-99) 154 mg/dL (70-99) Calcium Level 9.3 mg/dL (8.5-10.1) 8.8 mg/dL (8.5-10.1) Total Bilirubin 1.2 mg/dL (0.2-1.0) Aspartate Amino Transf (AST/SGOT) 20 U/L (15-37) Alanine Aminotransferase (ALT/SGPT) 22 U/L (14-59) Alkaline Phosphatase 96 U/L (46-116) Troponin I Quantitative < 0.017 ng/mL (0.000-0.055) Total Protein 7.8 g/dL (6.4-8.2) Albumin 3.8 g/dL (3.4-5.0) Albumin/Globulin Ratio 1.0 (1.0-1.7) Lipase 405 U/L (73-393) Urine Collection Type Unknown Urine Color Colorless Urine Clarity Clear Urine pH 7.0 Urine Specific [place] <=1.005 Urine Protein Negative mg/dL (NEG-TRACE) Urine Glucose (UA) Negative mg/dL (NEG) Urine Ketones (Stick) Negative mg/dL (NEG) Urine Blood Negative (NEG) Urine Nitrite Negative (NEG) Urine Bilirubin Negative (NEG) Urine Urobilinogen Dipstick 0.2 mg/dL (0.2 mg/dL) Urine Leukocyte Esterase Negative (NEG) Urine RBC Rare /HPF (0-2) Urine WBC Rare /HPF (0-4) Urine Squamous Epithelial Cells Few /LPF Urine Bacteria Few /HPF (0-FEW) Test 06/23/17 05:19 White Blood Count 6.9 x10^3/uL (4.0-11.0) Red Blood Count 3.84 x10^6/uL (3.50-5.40) Hemoglobin 11.9 g/dL (12.0-15.5) Hematocrit 34.9 % (36.0-47.0) Mean Corpuscular Volume 91 fL (79-100) Mean Corpuscular Hemoglobin 31 pg (25-35) Mean Corpuscular Hemoglobin Concent 34 g/dL (31-37) Red Cell Distribution Width 14.3 % (11.5-14.5) Platelet Count 167 x10^3/uL (140-400) Neutrophils (%) (Auto) 61 % (31-73) Lymphocytes (%) (Auto) 26 % (24-48) Monocytes (%) (Auto) 11 % (0-9) Eosinophils (%) (Auto) 2 % (0-3) Basophils (%) (Auto) 1 % (0-3) Neutrophils # (Auto) 4.2 x10^3uL (1.8-7.7) Lymphocytes # (Auto) 1.8 x10^3/uL (1.0-4.8) Monocytes # (Auto) 0.7 x10^3/uL (0.0-1.1) Eosinophils # (Auto) 0.1 x10^3/uL (0.0-0.7) Basophils # (Auto) 0.0 x10^3/uL (0.0-0.2) Sodium Level 134 mmol/L (136-145) Potassium Level 3.9 mmol/L (3.5-5.1) Chloride Level 100 mmol/L (98-107) Carbon Dioxide Level 28 mmol/L (21-32) Anion Gap 6 (6-14) Blood Urea Nitrogen 9 mg/dL (7-20) Creatinine 1.1 mg/dL (0.6-1.0) Estimated GFR (Cockcroft-Gault) 59.8 BUN/Creatinine Ratio 8 (6-20) Glucose Level 82 mg/dL (70-99) Calcium Level 7.9 mg/dL (8.5-10.1) Total Bilirubin 0.8 mg/dL (0.2-1.0) Aspartate Amino Transf (AST/SGOT) 16 U/L (15-37) Alanine Aminotransferase (ALT/SGPT) 18 U/L (14-59) Alkaline Phosphatase 72 U/L (46-116) Total Protein 6.1 g/dL (6.4-8.2) Albumin 2.9 g/dL (3.4-5.0) Albumin/Globulin Ratio 0.9 (1.0-1.7) Cortisol AM Sample 18.2 ug/dL (4.3-22.4) JASSON HEARD MD Jun 23, 2017 09:34
[2017-06-23] MEDS ORDERED: DEXTROSE 50% 25 GM / 50ML DISP.SYRIN. IV PRN (09:45)
[2017-06-23 11:00] VITALS: BP 130/74
[2017-06-23] MEDS: INSULIN ASPART 300 UNITS/3 ML INSULN.PEN SQ SCH ×2 (12:00→17:00)
--- NOTE | 2017-06-23 13:09 | PDOC ---
Subjective: Subjective: Feeling better today. Doesn't want to take Reglan. Considering erythromycin. Tolerating clears, would like to advance diet a little. Same "burning" abd pain. [place] upset yesterday when possibility of feeding tube was discussed. Objective: Vital Signs: Vital Signs Date Time Temp Pulse Resp B/P (MAP) Pulse Ox O2 Delivery O2 Flow Rate FiO2 06/23/17 08:15 65 129/65 06/23/17 08:00 Room Air 06/23/17 03:30 97.9 19 97 97.9 Labs: Laboratory Tests Test 06/22/17 13:25 06/22/17 14:50 06/22/17 19:25 06/23/17 05:19 White Blood Count 8.5 x10^3/uL 6.9 x10^3/uL Red Blood Count 4.46 x10^6/uL 3.84 x10^6/uL Hemoglobin 13.8 g/dL 11.9 g/dL Hematocrit 40.4 % 34.9 % Mean Corpuscular Volume 90 fL 91 fL Mean Corpuscular Hemoglobin 31 pg 31 pg Mean Corpuscular Hemoglobin Concent 34 g/dL 34 g/dL Red Cell Distribution Width 14.1 % 14.3 % Platelet Count 204 x10^3/uL 167 x10^3/uL Neutrophils (%) (Auto) 72 % 61 % Lymphocytes (%) (Auto) 17 % 26 % Monocytes (%) (Auto) 9 % 11 % Eosinophils (%) (Auto) 1 % 2 % Basophils (%) (Auto) 1 % 1 % Neutrophils # (Auto) 6.1 x10^3uL 4.2 x10^3uL Lymphocytes # (Auto) 1.5 x10^3/uL 1.8 x10^3/uL Monocytes # (Auto) 0.8 x10^3/uL 0.7 x10^3/uL Eosinophils # (Auto) 0.1 x10^3/uL 0.1 x10^3/uL Basophils # (Auto) 0.0 x10^3/uL 0.0 x10^3/uL Sodium Level 125 mmol/L 130 mmol/L 134 mmol/L Potassium Level 3.9 mmol/L 3.3 mmol/L 3.9 mmol/L Chloride Level 90 mmol/L 96 mmol/L 100 mmol/L Carbon Dioxide Level 26 mmol/L 30 mmol/L 28 mmol/L Anion Gap 9 4 6 Blood Urea Nitrogen 14 mg/dL 12 mg/dL 9 mg/dL Creatinine 1.4 mg/dL 1.2 mg/dL 1.1 mg/dL Estimated GFR (Cockcroft-Gault) 45.2 54.1 59.8 BUN/Creatinine Ratio 10 8 Glucose Level 124 mg/dL 154 mg/dL 82 mg/dL Calcium Level 9.3 mg/dL 8.8 mg/dL 7.9 mg/dL Total Bilirubin 1.2 mg/dL 0.8 mg/dL Aspartate Amino Transf (AST/SGOT) 20 U/L 16 U/L Alanine Aminotransferase (ALT/SGPT) 22 U/L 18 U/L Alkaline Phosphatase 96 U/L 72 U/L Troponin I Quantitative < 0.017 ng/mL Total Protein 7.8 g/dL 6.1 g/dL Albumin 3.8 g/dL 2.9 g/dL Albumin/Globulin Ratio 1.0 0.9 Lipase 405 U/L Urine Collection Type Unknown Urine Color Colorless Urine Clarity Clear Urine pH 7.0 Urine Specific [place] <=1.005 Urine Protein Negative mg/dL Urine Glucose (UA) Negative mg/dL Urine Ketones (Stick) Negative mg/dL Urine Blood Negative Urine Nitrite Negative Urine Bilirubin Negative Urine Urobilinogen Dipstick 0.2 mg/dL Urine Leukocyte Esterase Negative Urine RBC Rare /HPF Urine WBC Rare /HPF Urine Squamous Epithelial Cells Few /LPF Urine Bacteria Few /HPF Urine Osmolality 190 mOsmol/kg Cortisol AM Sample 18.2 ug/dL Test 06/23/17 11:56 Glucose (Fingerstick) 100 mg/dL PE: GEN: NAD LUNGS: CTAB HEART: RRR ABD: NABS, S/ND/NT NEURO/PSYCH: A & O 3 A/P: Gastroparesis Hyponatremia - improved -- Has IV Reglan ordered PRN - she doesn't want to take this, will discontinue. Try full liquids. Still considering trial of erythromycin. Again discussed gastroparesis diet w/ her - not sure she comprehends. YUAN SANTA Jun 23, 2017 13:09
[2017-06-23 15:00] VITALS: BP 126/80
[2017-06-23] MEDS: ENOXAPARIN 40 MG/0.4 ML SYRINGE. SQ SCH (17:17)
[2017-06-23 19:00] VITALS: BP 160/56
[2017-06-23] MEDS: LORazepam 1 MG TABLET PO PRN (21:05)
[2017-06-23] MEDS: ATORVASTATIN CALCIUM 10 MG TABLET. PO SCH (21:06)
[2017-06-23 23:00] VITALS: BP 151/53
[2017-06-24 03:00] VITALS: BP 132/62
[2017-06-24 07:00] VITALS: BP 166/80
[2017-06-24] MEDS: INSULIN ASPART 300 UNITS/3 ML INSULN.PEN SQ SCH ×3 (08:00→17:00)
[2017-06-24] MEDS: PANTOPRAZOLE 40 MG TABLET.DR. PO SCH (08:21)
[2017-06-24] MEDS: POLYETHYLENE GLYCOL 3350 17 GM PACKET. PO SCH (08:21)
[2017-06-24] MEDS: CARVEDILOL 12.5 MG TABLET. PO SCH ×2 (08:22→17:15)
[2017-06-24] MEDS: LOSARTAN POTASSIUM 50 MG TABLET. PO SCH (08:22)
[2017-06-24] MEDS: hydroCHLOROthiazide 12.5 MG CAPSULE PO SCH (08:23)
[2017-06-24] MEDS: SUCRALFATE 1 GM TABLET. PO SCH ×2 (08:23→22:58)
[2017-06-24] MEDS: LORazepam 1 MG TABLET PO PRN ×2 (10:32→20:52)
[2017-06-24] MEDS: IV NORMAL SALINE 1000ML BAG 1,000 ML IV SCH ×2 (10:32→20:49)
[2017-06-24 10:45] VITALS: BP 164/76
--- NOTE | 2017-06-24 14:02 | PDOC ---
Subjective: Subjective: "Saw spots" earlier. Tolerating diet w/o n/v. Some "burning" abd pain - same. Still undecided re: erythromycin. Objective: Vital Signs: Vital Signs Date Time Temp Pulse Resp B/P (MAP) Pulse Ox O2 Delivery O2 Flow Rate FiO2 06/24/17 10:45 97.9 72 18 164/76 (105) 97 Room Air 97.9 Labs: Laboratory Tests Test 06/23/17 17:03 06/23/17 21:11 06/24/17 07:03 06/24/17 09:56 Glucose (Fingerstick) 112 mg/dL (70-99) 92 mg/dL (70-99) 100 mg/dL (70-99) 115 mg/dL (70-99) PE: GEN: NAD LUNGS: CTAB HEART: RRR ABD: S/ND/NT NEURO/PSYCH: A & O 3 A/P: Gastroparesis, recurrent admissions for n/v. -- Today she asked the same questions about gastroparesis and treatment as she has asked me on several previous occasions. Her brothers were present today; I took time to again explain the condition and treatment options. Again, I'm not sure she comprehends. She says she doesn't want a medication, she doesn't want surgery (for a feeding tube), and she doesn't want to be re-admitted to the hospital. She should consider a second opinion for gastroparesis. At the end of our conversation, she did agree to try erythromycin - I will start this today. ADAT. Continue PPI. D/w Dr. Johnson. YUAN SANTA Jun 24, 2017 14:02
--- NOTE | 2017-06-24 14:03 | PDOC ---
PROGRESS NOTES Chief Complaint Chief Complaint Acute abdominal pain ASSESSMENT AND PLAN: 1. Gastritis/ esophagitis: PPI PO BID. 2. Gastroparesis: recent dx. advance diet as mendy. declines reglan, consideration of PEJ. waffling on erythromycin. will try here. She "just want[ s] to be better" 3. Hyponatremia: resolved 4. MIGUEL: vasomotor nephropathy. much improved 5. HTN: well controlled on home regimen 6. Hyperglycemia: no previous dx. HgbA1c WNL. stop ISS 7. Anxiety: cont home regimen 8. Dispo: home in AM, may seek 2nd opinion on O/P basis, different hospital History of Present Illness History of Present Illness able to tolerate full liquids. + heartburn Vitals Vitals Vital Signs Date Time Temp Pulse Resp B/P (MAP) Pulse Ox O2 Delivery O2 Flow Rate FiO2 06/24/17 10:45 97.9 72 18 164/76 (105) 97 Room Air 97.9 Physical Exam General: Alert, Oriented X3, Cooperative Heart: Regular rate Lungs: Clear Abdomen: Normal bowel sounds, Soft, Other (diffusely tender, with guarding, no rebound, soft, ) Extremities: No edema Skin: No rashes Labs LABS Laboratory Tests Test 06/23/17 17:03 06/23/17 21:11 06/24/17 07:03 06/24/17 09:56 Glucose (Fingerstick) 112 mg/dL (70-99) 92 mg/dL (70-99) 100 mg/dL (70-99) 115 mg/dL (70-99) JASSON HEARD MD Jun 24, 2017 14:03
[2017-06-24 14:39] VITALS: BP 156/72
[2017-06-24] MEDS: ERYTHROMYCIN BASE 250 MG TABLET PO SCH ×2 (17:14→20:47)
[2017-06-24] MEDS: ENOXAPARIN 40 MG/0.4 ML SYRINGE. SQ SCH (17:15)
[2017-06-24 19:05] VITALS: BP 148/65
[2017-06-24] MEDS: ATORVASTATIN CALCIUM 10 MG TABLET. PO SCH (20:47)
[2017-06-24 23:05] VITALS: BP 145/66
[2017-06-25 03:10] VITALS: BP 140/68
[2017-06-25 07:00] VITALS: BP 163/66
[2017-06-25] MEDS: INSULIN ASPART 300 UNITS/3 ML INSULN.PEN SQ SCH ×2 (08:00→12:00)
[2017-06-25] MEDS: ERYTHROMYCIN BASE 250 MG TABLET PO SCH ×2 (09:48→12:42)
[2017-06-25] MEDS: CARVEDILOL 12.5 MG TABLET. PO SCH (09:49)
[2017-06-25] MEDS: hydroCHLOROthiazide 12.5 MG CAPSULE PO SCH (09:49)
[2017-06-25] MEDS: SUCRALFATE 1 GM TABLET. PO SCH (09:50)
[2017-06-25] MEDS: POLYETHYLENE GLYCOL 3350 17 GM PACKET. PO SCH (09:50)
[2017-06-25] MEDS: PANTOPRAZOLE 40 MG TABLET.DR. PO SCH (09:50)
[2017-06-25] MEDS: LOSARTAN POTASSIUM 50 MG TABLET. PO SCH (09:50)
[2017-06-25 11:00] VITALS: BP 118/73
[2017-06-25] MEDS ORDERED: ERYT250T14 PO (11:03)
--- NOTE | 2017-06-25 12:22 | PDOC ---
Subjective: Subjective: Tolerating erythromycin. Just had a BM. No n/v. Asks me again what she can eat w/ gastroparesis. Objective: Vital Signs: Vital Signs Date Time Temp Pulse Resp B/P (MAP) Pulse Ox O2 Delivery O2 Flow Rate FiO2 06/25/17 11:00 97.5 67 18 118/73 (88) 100 Room Air 97.5 Labs: Laboratory Tests Test 06/24/17 16:23 06/24/17 21:11 06/25/17 07:48 06/25/17 11:46 Glucose (Fingerstick) 136 mg/dL 109 mg/dL 88 mg/dL 104 mg/dL PE: GEN: NAD LUNGS: CTAB HEART: RRR ABD: S/ND/NT NEURO/PSYCH: A & O 3 A/P: Gastroparesis - n/v improved -- DC per primary. Continue erythromycin and PPI. Multiple attempts to explain gastroparesis diet. YUAN SANTA Jun 25, 2017 12:22
--- NOTE | 2017-06-27 18:29 | DS ---
DATE OF DISCHARGE: 06/25/2017 CHIEF COMPLAINT: Acute abdominal pain. HOSPITAL COURSE: The patient is a 67-year-old woman who recurrently presents for abdominal pain related to gastritis/esophagitis as well as gastroparesis. She is typically noncompliant with her regimen. She once again presented with same symptoms, was started on a PPI and IV Reglan. She had refused Reglan in the past and considered erythromycin as an option, but never followed through. She outright refuses consideration of a PEJ tube placement. Her symptoms resolved with appropriate medications. She was finally agreeable to give erythromycin a try and was discharged to home with a prescription. She did have hyponatremia and acute kidney injury, vasomotor etiology due to dehydration and nausea and vomiting. This, however, was quickly brought under control. She was noted to have mild hyperglycemia. However, hemoglobin A1c was within normal limits and no further interventions were undertaken. PHYSICAL EXAMINATION: VITAL SIGNS: Show a blood pressure of 118/73, heart rate of 67, respiratory rate at 18. She is afebrile. GENERAL: Alert and oriented, no acute distress. LUNGS: Clear. HEART: Regular rate and rhythm. ABDOMEN: Soft, nontender, nondistended. EXTREMITIES: No edema. DISCHARGE DISPOSITION: home DISCHARGE CONDITION: IMPROVED DISCHARGE DIAGNOSES: Gastroesophageal reflux disease, gastroparesis. DISCHARGE MEDICATIONS: Please refer to MAR. DISCHARGE INSTRUCTIONS: The patient will follow up with PCP and GI as needed. JASSON HEARD MD DR: WILFRED/nts JOB#: [id number] / [id number] SHRAVAN Virgen APRN
== END 2017-06-25 15:22 | disposition home or self-care (01) | DRG 391 ==
LOC: ER 12:58 → 5 SOUTH 15:43
PROVIDERS: ADMIT Internal Medicine; ATTEND Internal Medicine
DX: K21.0 Gastro-esophageal reflux disease with esophagitis (principal); N17.0 Acute kidney failure with tubular necrosis; E87.1 Hypo-osmolality and hyponatremia; K29.70 Gastritis, unspecified, without bleeding; K31.84 Gastroparesis; E78.5 Hyperlipidemia, unspecified; E86.0 Dehydration; F41.9 Anxiety disorder, unspecified; I10 Essential (primary) hypertension; I25.10 Atherosclerotic heart disease of native coronary artery without angina pectoris; Z91.19 Patient's noncompliance with other medical treatment and regimen; Z95.5 Presence of coronary angioplasty implant and graft; Z88.1 Allergy status to other antibiotic agents; Z88.5 Allergy status to narcotic agent; Z88.8 Allergy status to other drugs, medicaments and biological substances
CPT/HCPCS: 36415; 71010; 80048; 80053; 81001; 82533; 82962; 83036; 83690; 83935; 84484; 85025; 93005; 96361; 96374; 96375; C9113; G0204; J1650; J1815; J2405; J7030; 77066; 99285-25

== ENCOUNTER → 2017-06-22 | Outpatient (CLI) | payer MEDICARE ==
[2016-04-12 11:01] VITALS: BP_DIAS 75
[2017-06-15 11:00] VITALS: BP_SYST 138
[~2017-06-22] MED LIST changes: -IV RINGERS,LACTATED 1000ML 1,000 ML IV SCH; -PROPOFOL 20 ML IV ONE
--- NOTE | 2017-06-22 13:07 | RAD ---
DATE: 06/22/2017 EXAM: DIGITAL DIAGNOSTIC BILATERAL HISTORY: 6 month follow-up COMPARISON: 12/09/2016, 06/18/2016, 05/19/2015 This study was interpreted with the benefit of Computerized Aided Detection (CAD). The breast parenchyma shows scattered fibroglandular densities. Breast parenchyma level B. FINDINGS: No new or enlarging breast densities are seen. Lymph node type densities which were intermittently visualized high in the right axilla on previous studies are not evident on today's images. An old breast biopsy marker is present medially in the left breast. Benign type calcifications are present. No suspicious microcalcifications have developed IMPRESSION: Stable mammograms without evidence of malignancy. BI-RADS CATEGORY: 2 BENIGN FINDING(S) RECOMMENDED FOLLOW-UP: 12M 12 MONTH FOLLOW-UP PQRS compliance statement: Patient information was entered into a reminder system with a target due date for the next mammogram. Mammography is a sensitive method for finding small breast cancers, but it does not detect them all and is not a substitute for careful clinical examination. A negative mammogram does not negate a clinically suspicious finding and should not result in delay in biopsying a clinically suspicious abnormality. "Our facility is accredited by the [employer] Mammography Program."
== END | disposition home or self-care (01) ==
LOC: MAMMO 12:10
PROVIDERS: ATTEND Nurse Practitioner Family
DX: R92.8 Other abnormal and inconclusive findings on diagnostic imaging of breast (principal)
CPT/HCPCS: G0204; 77066

== ENCOUNTER → 2018-06-23 | Outpatient (CLI) | payer MEDICARE ==
[~2018-06-23] MED LIST changes: +ERYT250T14 PO; +LOSA1TAB25 PO; -SPIR50TA2 PO; +SPIR50TA4 PO
--- NOTE | 2018-06-23 09:21 | RAD ---
DATE: 05/23/2018 EXAM: MAMMO CARMEN SCREENING BILATERAL HISTORY: Routine screening. Benign left breast biopsy COMPARISON: 05/19/2015, 05/29/2016, at 06/22/2017 mammographic exams This study was interpreted with the benefit of Computerized Aided Detection (CAD). Breast Density: SCATTERED The breast parenchyma shows scattered fibroglandular densities. Breast parenchyma level B. FINDINGS: Biopsy clip marker involves the upper left central breast. No suspicious calcification cluster or distortion. No masses. IMPRESSION: Normal BI-RADS CATEGORY: 2 BENIGN FINDING(S) RECOMMENDED FOLLOW-UP: 12M 12 MONTH FOLLOW-UP PQRS compliance statement: Patient information was entered into a reminder system with a target due date in one year for the next mammogram. Mammography is a sensitive method for finding small breast cancers, but it does not detect them all and is not a substitute for careful clinical examination. A negative mammogram does not negate a clinically suspicious finding and should not result in delay in biopsying a clinically suspicious abnormality. "Our facility is accredited by the [employer] Mammography Program."
== END | disposition home or self-care (01) ==
LOC: MAMMO 08:27
PROVIDERS: ATTEND Nurse Practitioner Family
DX: Z12.31 Encounter for screening mammogram for malignant neoplasm of breast (principal)
CPT/HCPCS: 77063; 77067

== ENCOUNTER → 2018-10-29 | Day surgery (SDC) | payer MEDICARE, OTHER ==
[~2018-10-29] MED LIST changes: +AMIT25TA PO; +AMLO5TAB10 PO; +IV RINGERS,LACTATED 1000ML 1,000 ML IV SCH; +LATA2.5D3 OP; +LIDOCAINE 1% PF 2 ML VIAL. ID PRN; +PROCHLORPERAZINE 10 MG/2 ML VIAL. IV PRN; +PROPOFOL 20 ML IV ONE
[2018-10-29 10:43] VITALS: BP 125/64
== END | disposition home or self-care (01) ==
LOC: SURG 08:39
PROVIDERS: ATTEND Internal Medicine Gastroenterology
DX: K57.30 Diverticulosis of large intestine without perforation or abscess without bleeding (principal); K64.0 First degree hemorrhoids; F41.9 Anxiety disorder, unspecified; F32.9 Major depressive disorder, single episode, unspecified; E78.00 Pure hypercholesterolemia, unspecified; I11.9 Hypertensive heart disease without heart failure; I25.2 Old myocardial infarction; K21.9 Gastro-esophageal reflux disease without esophagitis; K31.84 Gastroparesis; Z83.3 Family history of diabetes mellitus; Z79.899 Other long term (current) drug therapy; Z90.49 Acquired absence of other specified parts of digestive tract; Z88.2 Allergy status to sulfonamides; Z88.5 Allergy status to narcotic agent; Z88.6 Allergy status to analgesic agent; Z88.1 Allergy status to other antibiotic agents; M19.90 Unspecified osteoarthritis, unspecified site
CPT/HCPCS: 45378; J2704

== ENCOUNTER → 2018-12-10 | Outpatient (CLI) | payer OTHER ==
[2018-10-29 10:43] VITALS: BP 125/64
[~2018-12-10] MED LIST changes: -IV RINGERS,LACTATED 1000ML 1,000 ML IV SCH; -LIDOCAINE 1% PF 2 ML VIAL. ID PRN; -PROCHLORPERAZINE 10 MG/2 ML VIAL. IV PRN; -PROPOFOL 20 ML IV ONE
--- NOTE | 2018-12-10 13:36 | KCIC ---
Examination: 3 views of the right wrist, 2 views of the right thumb, 4 views of the cervical spine HISTORY: History of neck pain, thumb pain, wrist pain COMPARISON: None available. Findings/ impression: Cervical spine: Moderate intervertebral disc height loss identified in the cervical spine particularly at C3-C4, C4-C5, C5-C6 vertebral levels with moderate anterior osteophyte formation particularly at C4, C5 vertebral levels. The facets are well aligned. Right wrist: The alignment of the carpal bones grossly appears unremarkable. There is minimal widening appearance of the scapholunate interval could be due to positioning or ligamentous pathology. MRI may be useful. Mild degenerative changes identified in the first carpometacarpal joint. Right thumb: Mild joint space loss identified in the first metacarpophalangeal, interphalangeal joint. Small dorsal osteophyte formation identified in the first interphalangeal joint. Electronically signed by: Mark Álvarez MD (12/10/2018 1:33 PM) [id number]
== END | disposition home or self-care (01) ==
LOC: KCIC 09:23
PROVIDERS: ATTEND Nurse Practitioner Family
DX: M25.78 Osteophyte, vertebrae (principal)
CPT/HCPCS: 72040; 73110; 73140

== ENCOUNTER → 2019-06-25 | Outpatient (CLI) | payer MEDICARE, OTHER ==
[2018-10-29 10:43] VITALS: BP 125/64
[~2019-06-25] MED LIST changes: +OMEP40CA45 PO; -OMEP40CA5 PO; -PANT40TA5 PO; +PANT40TA77 PO
--- NOTE | 2019-06-27 13:14 | RAD ---
DATE: 06/27/2019. EXAM: MAMMO CARMEN SCREENING BILATERAL. HISTORY: Routine mammographic screening. COMPARISON: 06/23/2018, 05/31/2016. This study was interpreted with the benefit of Computerized Aided Detection (CAD). FINDINGS: Breast Density: HETERO The breast parenchyma is heterogenously dense, which could reduce sensitivity of mammography. Breast parenchyma level C.. There are no suspicious masses, microcalcifications or architectural distortion. There are postbiopsy changes superomedially on the left. A density laterally on the left CC projection is no correlate on the MLO view and appears stable in comparison with the 2016 CC projection. BI-RADS CATEGORY: 2 BENIGN FINDING(S). RECOMMENDED FOLLOW-UP: 12M 12 MONTH FOLLOW-UP. PQRS compliance statement: Patient information was entered into a reminder system with a target due date 06/27/2020 for the next mammogram. Mammography is a sensitive method for finding small breast cancers, but it does not detect them all and is not a substitute for careful clinical examination. A negative mammogram does not negate a clinically suspicious finding and should not result in delay in biopsying a clinically suspicious abnormality. "Our facility is accredited by the [employer] Mammography Program."
== END | disposition home or self-care (01) ==
LOC: MAMMO 08:18
PROVIDERS: ATTEND Nurse Practitioner Family
DX: Z12.31 Encounter for screening mammogram for malignant neoplasm of breast (principal)
CPT/HCPCS: 77063; 77067

== ENCOUNTER → 2020-07-07 | Outpatient (CLI) | payer MEDICARE ==
[2018-10-29 10:43] VITALS: BP 125/64
[~2020-07-07] MED LIST changes: +AMLO-186 PO; -AMLO5TAB10 PO
--- NOTE | 2020-07-16 09:38 | RAD ---
BILATERAL SCREENING MAMMOGRAM, 3-D History: Routine screening. Comparison: 05/31/2016, 12/09/2016, 06/22/2014 06/25/2019. Technique: MLO and CC digital tomosynthesis (3D) images obtained. Radiologist reviewed these images on dedicated workstation. Findings: Breast Tissue Density B : There are scattered areas of fibroglandular density. There are no dominant masses, suspicious microcalcifications, or architectural distortion. Biopsy clip marker involves the left breast. IMPRESSION: No mammographic evidence of malignancy. Recommend routine screening. BI-RADS category 1: Negative. The images were reviewed with computer-aided detection. Patient information is entered into reminder system with a target due date for the next screening mammogram. Mammography is the most sensitive method for finding small breast cancers, but it does not detect them all and is not a substitute for careful clinical examination. A negative mammogram does not negate a clinically suspicious finding and should not result in delay in biopsying a clinically suspicious abnormality. "Our facility is accredited by the [employer] Mammography Program." Electronically signed by: Edward Youngblood MD (07/16/2020 9:35 AM) [id number]
== END ==
LOC: MAMMO 08:48
PROVIDERS: ATTEND Nurse Practitioner Family
DX: Z12.31 Encounter for screening mammogram for malignant neoplasm of breast (principal)
CPT/HCPCS: 77063; 77067

== ENCOUNTER → 2021-07-13 | Outpatient (CLI) | payer MEDICARE ==
[2018-10-29 10:43] VITALS: BP 125/64
[~2021-07-13] MED LIST changes: -LEVO500T8 PO; +LEVO500T9 PO; -LISI-334 PO; +LISI20TA18 PO; -OMEP40CA45 PO; +OMEP40CA7 PO
--- NOTE | 2021-07-15 11:40 | RAD ---
Bilateral digital screening 2-D and 3-D (digital breast tomosynthesis) mammogram: Reason for examination: Routine screening. Comparison: Mammograms from 07/07/2020 and 06/25/2019. Interpretation was made with the benefit of CAD. FINDINGS: Breast density: Category B. There are scattered areas of fibroglandular density. No suspicious breast mass, malignant appearing calcifications, or architectural distortion is seen. IMPRESSION: No evidence of malignancy. Assessment: BI-RADS 1. Negative. Recommendation: Routine screening mammograms. The patient will receive a letter with the results in the mail. Patient information will be entered i nto the mammography reminder system with a target recall date for the next mammogram. A reminder sultana er will be generated. Electronically signed by: Cecelia Carrera MD (07/15/2021 11:37 AM) [id number]
== END ==
LOC: MAMMO 08:23
PROVIDERS: ATTEND Nurse Practitioner Family
DX: Z12.31 Encounter for screening mammogram for malignant neoplasm of breast (principal)
CPT/HCPCS: 77063; 77067

== ENCOUNTER → 2021-09-02 | Outpatient (CLI) | payer MEDICARE ==
[2018-10-29 10:43] VITALS: BP 125/64
--- NOTE | 2021-09-02 10:59 | KCIC ---
EXAM: Bilateral knees, 3 views. HISTORY: Pain. COMPARISON: 03/26/2017 FINDINGS: Right knee: 3 views of the right knee are obtained. There is moderate to severe medial compartment susy int space narrowing, subchondral sclerosis and spurring. There is mild to moderate lateral and modera te patellofemoral compartment spurring. There is enthesopathy along the superior right patella. There is a small right knee effusion. There is a right knee joint loose body. There is suspected slight ge nu varus. Left knee: 3 views of the left knee are obtained. There is moderate to severe medial compartment join t space narrowing, subchondral sclerosis and spurring. There is mild lateral and moderate patellofemo ral compartment spurring. There is enthesopathy along the superior left patella. There is a moderate left knee effusion. There is slight left genu varus. IMPRESSION: 1. Moderate to severe medial compartment predominant osteoarthritis of both knees with slight genu va miguel. 2. Small right and moderate left knee effusions. Electronically signed by: Tanya Wilson MD (09/02/2021 10:57 AM) [id number]
--- NOTE | 2021-09-02 12:25 | KCIC ---
MRI THORACIC SPINE WO INDICATION: THORACIC SPINE PAIN. Sx for yrs. Pt c/o burning across thoracic area posteriorly. Burning sensation in BUE. TECHNIQUE: Multi-planar multi-weighted magnetic resonance imaging of the thoracic spine was performed without contrast using the standard protocol. COMPARISON: MRI 07/15/2016. Ultrasound 07/21/2016. FINDINGS: The thoracic spine is normally aligned. No acute fracture. Vertebral body heights are maintained with out compression deformity. Mild multilevel degenerative disc desiccation and disc height loss. Bone m arrow signal intensity is normal. The spinal cord is normal in signal intensity. The conus medullaris terminates at a normal level. Partially visualized uterine/adnexal masses. No significant neuroforaminal narrowing or spinal canal stenosis in the thoracic spine. Partially vis ualized advanced cervical spondylosis with multilevel moderate and severe spinal canal stenosis. IMPRESSION: 1. Mild thoracic spondylosis. No significant spinal canal stenosis or neural foraminal narrowing in t he thoracic spine. 2. Partially visualized advanced cervical spondylosis with multilevel moderate and severe spinal socorro l stenosis. This could be further characterized with cervical spine MRI. 3. Partially visualized uterine/adnexal masses, better characterized on pelvic ultrasound 07/21/2016. Electronically signed by: Ramin Talavera MD (09/02/2021 12:23 PM) [id number]
== END ==
LOC: KCIC MRI 09:03
PROVIDERS: ATTEND Nurse Practitioner Family
DX: M17.0 Bilateral primary osteoarthritis of knee (principal); M47.813 Spondylosis without myelopathy or radiculopathy, cervicothoracic region; M25.462 Effusion, left knee; M21.162 Varus deformity, not elsewhere classified, left knee; M21.161 Varus deformity, not elsewhere classified, right knee
CPT/HCPCS: 72146; 73562-50

== ENCOUNTER → 2021-09-25 | Outpatient (CLI) | payer MEDICARE ==
[2018-10-29 10:43] VITALS: BP 125/64
--- NOTE | 2021-09-25 10:29 | KCIC ---
EXAM: Pelvic sonogram. HISTORY: Uterine mass. TECHNIQUE: Transabdominal and transvaginal sonographic imaging of the pelvis was performed. COMPARISON: 07/29/2016. FINDINGS: The uterine configuration suggests possible didelphys. The right uterine horn measures 7.3 x 4.1 x 4.2 cm within the endometrial stripe thickness of 6.3 mm. The left uterine horn measures 6.2 x 4.8 x 3.7 cm with an endometrial stripe thickness of 9.5 mm. The uterine parenchyma is diffusely he terogeneous and contains multiple fibroids, some of which are calcified. The largest fibroids measure 3.4 cm on the right and 3.2 cm and 1.9 cm on the left. The ovaries are not seen. There is no pelvic free fluid. IMPRESSION: 1. 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 The largest fibroid measures 3.4 cm. 2. Abnormally thickened endometrium for the postmenopausal status the patient. Tissue sampling can be performed to exclude endometrial pathology if there is clinical concern. 3. Obscured ovaries. Electronically signed by: Tanya Wilson MD (09/25/2021 10:26 AM) [id number]
--- NOTE | 2021-09-25 12:18 | KCIC ---
EXAM: Cervical spine MRI without contrast. HISTORY: Spondylosis. TECHNIQUE: Multiplanar, multisequence magnetic resonance imaging of the cervical spine was performed without contrast. COMPARISON: None. FINDINGS: There is mild cervical kyphosis. There is slight retrolisthesis of C3 on C4, C4 on C5 and C 5 on C6. There is degenerative endplate remodeling with disc space narrowing and osteophytosis at mul tiple levels. There are few small incidental osseous hemangiomas. There is no suspicious osseous lesi on. There is no acute or subacute fracture. 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 There is deformation of the spinal cord at multiple levels due to central canal stenosis. No spinal cord edema or myelomalacia is seen. At C2-C3, there is a posterior central disc protrusion. There is mild bilateral facet arthropathy. Th ere is no stenosis. At C3-C4, there is a posterior central disc protrusion to proposed on a disc bulge and endplate remod eling. There is mild bilateral facet arthropathy. There is bilateral uncovertebral arthropathy. There is moderate to severe right foraminal stenosis. There is deformation of the spinal cord at moderate central canal stenosis measuring 7.2 mm in anterior posterior dimension. At C4-C5, there is a posterior central disc protrusion superimposed on a disc bulge and endplate mayo deling. There is mild bilateral facet arthropathy. There is bilateral uncovertebral arthropathy. Ther e is moderate right and moderate to severe left foraminal stenosis. There is deformation of the spina l cord and moderate central canal stenosis measuring 6.8 mm in anterior posterior dimension. At C5-C6, there is a disc bulge and endplate osteophytosis. There is moderate bilateral facet arthrop athy. There is bilateral uncovertebral arthropathy. There is severe lateral foraminal stenosis. There is deformation of the spinal cord and moderate to severe central canal stenosis measuring 5.9 mm in anterior posterior dimension. At C6-C7, there is a disc bulge and endplate remodeling. There is mild bilateral facet arthropathy. T here is bilateral uncovertebral arthropathy. There is moderate bilateral foraminal stenosis. IMPRESSION: 1. Multilevel degenerative change involving the cervical spine, described in detail above. This resul ts in significant foraminal and central canal stenosis of aforementioned levels. 2. 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 Electronically signed by: Tanya Wilson MD (09/25/2021 12:16 PM) [id number]
== END ==
LOC: KCIC US 08:32
PROVIDERS: ATTEND Nurse Practitioner Family
DX: D25.9 Leiomyoma of uterus, unspecified (principal); R93.89 Abnormal findings on diagnostic imaging of other specified body structures; N94.89 Other specified conditions associated with female genital organs and menstrual cycle; M47.812 Spondylosis without myelopathy or radiculopathy, cervical region; M48.02 Spinal stenosis, cervical region; M50.30 Other cervical disc degeneration, unspecified cervical region; M48.8X2 Other specified spondylopathies, cervical region; Z78.0 Asymptomatic menopausal state
CPT/HCPCS: 72141; 76830; 76856